=== PATIENT | female | born 1940 | race Native Hawaiian/Other Pacific Islander ===

== ENCOUNTER → 2016-12-19 | Outpatient (CLI) | payer OTHER, MEDICARE | LOC: BMCIMAGING 10:23 | PROVIDERS: ATTEND Orthopaedic Surgery | DX: Z09 Encounter for follow-up examination after completed treatment for conditions other than malignant neoplasm (principal); Z96.652 Presence of left artificial knee joint ==

== ENCOUNTER → 2017-12-15 | Outpatient (CLI) | payer OTHER, MEDICARE | LOC: FIMAGING 13:49 | PROVIDERS: ATTEND Radiology Diagnostic Radiology | DX: M99.71 Connective tissue and disc stenosis of intervertebral foramina of cervical region (principal); M50.322 Other cervical disc degeneration at C5-C6 level; R07.9 Chest pain, unspecified ==

== ENCOUNTER → 2018-03-27 | Outpatient (CLI) | payer OTHER, MEDICARE | LOC: BMCIMAGING 08:38 | PROVIDERS: ATTEND Orthopaedic Surgery | DX: M25.511 Pain in right shoulder (principal); M25.562 Pain in left knee ==

== ENCOUNTER → 2018-05-11 | Outpatient (CLI) | payer OTHER, MEDICARE | LOC: FIMAGING 12:52 | PROVIDERS: ATTEND Orthopaedic Surgery | DX: M24.811 Other specific joint derangements of right shoulder, not elsewhere classified (principal); M75.51 Bursitis of right shoulder ==